=== PATIENT | female | born 1990 | race Caucasian/White ===

== ENCOUNTER 2017-06-04 10:08 | Emergency (ER) | payer BC, OTHER ==
[2017-06-04 10:16] VITALS: BP 107/73
[2017-06-04] MEDS ORDERED: methylPREDNISolone Sodium Succinate 125 MG/2 ML SDV IVPUSH ONE (10:16)
[2017-06-04] MEDS ORDERED: diphenhydrAMINE 50 MG/ML SDV IVPUSH ONE (10:17)
[2017-06-04] MEDS ORDERED: Sodium Chloride 0.9% 10 ML Syringe FLUSH PRN (10:31)
[2017-06-04] MEDS ORDERED: Famotidine 20 MG Tab PO ONE (10:55)
--- NOTE | 2017-06-04 11:23 | EDM.PDOC ---
ED HPI GENERAL MEDICAL PROBLEM - General Chief Complaint: Allergic Reaction Stated Complaint: allergic reaction Time Seen by Provider: 06/04/17 10:33 Source of Information: Reports: Patient History Limitations: Reports: No Limitations - History of Present Illness INITIAL COMMENTS - FREE TEXT/NARRATIVE: Generalized Urticaria that developed over the last 24 hours. No known exposures. No history of prior hives. No med changes recently. Denies any recent trauma or illness. Denies SOB/respiratory changes. No other complaints. Was out running in the heat two days ago. Hives started around back of neck. More concentrated around waistband area now. Took one Benadryl earlier today. 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 Denies: Ear Pain, Rhinitis, Sinus Problem, Throat Pain, Throat Swelling Respiratory: Reports: No Symptoms Cardiovascular: Reports: No Symptoms GI/Abdominal: Reports: No Symptoms : Reports: No Symptoms Musculoskeletal: Reports: No Symptoms Skin: Reports: Urticaria. Denies: Mottled, Pallor, Diaphoresis, Wound, Burn(s) , Change in Hair/Nails, Lumps Neurological: Reports: No Symptoms Psychiatric: Reports: No Symptoms Hematologic/Lymphatic: Reports: No Symptoms Immunologic: Reports: No Symptoms ED EXAM GENERAL NO PERIP PULSE - Physical Exam Exam: See Below Exam Limited By: No Limitations General Appearance: Alert, WD/WN, No Apparent Distress Eye Exam: Bilateral Eye: EOMI, PERRL Ears: Normal External Exam, Normal Canal Nose: Normal Inspection Throat/Mouth: Normal Inspection, Normal Voice, No Airway Compromise Head: Atraumatic, Normocephalic Neck: Normal Inspection, Supple, Non-Tender, Full Range of Motion Respiratory/Chest: No Respiratory Distress, Lungs Clear, Normal Breath Sounds, No Accessory Muscle Use, Chest Non-Tender Cardiovascular: Normal Peripheral Pulses, Regular Rate, Rhythm, No Murmur GI/Abdominal: Normal Bowel Sounds, Soft, Non-Tender, No Distention (Female) Exam: Deferred Rectal (Female) Exam: Deferred Back Exam: Normal Inspection Extremities: Normal Inspection, Normal Range of Motion, Non-Tender, No Pedal Edema, Normal Capillary Refill Neurological: Alert, Oriented, Normal Gait, No Motor/Sensory Deficits Psychiatric: Normal Affect, Normal Mood Skin Exam: Warm, Dry, Other (Urticarial-type lesions scattered on neck/trunk/ limbs. No scaling. No drainage/pustules/vesicles. More concentrated/confluent around waistband. ). No: Excoriations, Increased Warmth, Jaundice Course - Vital Signs Last Recorded V/S: Last Vital Signs Temp 36.4 C 06/04/17 10:12 Pulse 91 06/04/17 10:12 Resp 20 06/04/17 10:12 BP 107/73 06/04/17 10:12 Pulse Ox 100 06/04/17 10:12 - Orders/Labs/Meds Orders: Active Orders 24 hr Category Date Time Status Saline Lock Insert [OM.PC] Routine Oth 06/04/17 10:31 Ordered Meds: Medications Discontinued Medications Generic Name Dose Route Start Last Admin Trade Name Kenneyq PRN Reason Stop Dose Admin Diphenhydramine HCl 50 mg 06/04/17 10:17 06/04/17 10:33 Benadryl IVPUSH 06/04/17 10:18 50 mg ONETIME ONE Administration Famotidine 20 mg 06/04/17 10:55 06/04/17 11:06 Pepcid PO 06/04/17 10:56 20 mg ONETIME ONE Administration Methylprednisolone Sodium Succinate 125 mg 06/04/17 10:16 06/04/17 10:29 Solu-Medrol IVPUSH 06/04/17 10:17 125 mg ONETIME ONE Administration Sodium Chloride 10 ml 06/04/17 10:31 06/04/17 10:32 Saline Flush FLUSH 10 ml ASDIRECTED PRN Administration Keep Vein Open - Re-Assessments/Exams Free Text/Narrative Re-Assessment/Exam: 06/04/17 11:24 Improvement noted within 30 minutes of receiving Solumedrol and Benadryl IV. Continued to be observed in ER. Uncertain as to cause of rash. May be due to environmental exposure. Given the concentration around waistband and history of running in the heat/developing heavy sweating two days ago---may be heat-induced urticarial reaction. No changes in medications at this time planned, however if symptoms persist patient may need to consider discontinuation of meds while trigger for the hives is attempted to be found. Will continue patient on several days of Prednisone as well as Benadryl. Departure - Departure Time of Disposition: 11:45 Disposition: Home, Self-Care 01 Clinical Impression: Urticaria - Discharge Information Prescriptions: predniSONE [Prednisone] 20 mg PO DAILY #3 tablet Instructions: Famotidine tablets or gelcaps, Diphenhydramine injection, Methylprednisolone Solution for Injection, Hives, [id number] Referrals: PCP,Unknown [Ordering Only Provider] - Additional Instructions: Home, rest, stay in air-conditioned environment for the next several days. If heat/exercise triggered the hives, it is best to avoid triggering worsening symptoms and avoid re-exposure. As discussed, other things can cause hives, including medications, food, plants, bugs, and chemicals. If the hives return or will not go away then further evaluation needs to be done. For now, continue your current medications as you have been on them for awhile. However they may need to be discontinued if the hives continue to be problematic. Do not suddenly stop them on your own however as you can get withdrawal problems from doing that. Follow up at clinic as needed. Follow up in ER if you have sudden worsening problems, especially if you develop swelling of throat/lips or shortness of breath. - My Orders Last 24 Hours: My Active Orders 06/04/17 10:31 Saline Lock Insert [OM.PC] Routine - Assessment/Plan Last 24 Hours: My Active Orders 06/04/17 10:31 Saline Lock Insert [OM.PC] Routine
== END 2017-06-04 11:58 | disposition home or self-care (01) ==
LOC: LL.ED 10:08
DX: L50.9 Urticaria, unspecified (principal); Z88.1 Allergy status to other antibiotic agents; Z88.2 Allergy status to sulfonamides; Z79.899 Other long term (current) drug therapy; Z90.710 Acquired absence of both cervix and uterus
CPT/HCPCS: 96374; 96375; 99283; 99284; A9270; J1200; J2930; J7050

== ENCOUNTER 2017-06-05 20:54 | Emergency (ER) | payer OTHER ==
[2017-06-05] MEDS ORDERED: methylPREDNISolone Sodium Succinate 125 MG/2 ML SDV IM ONE (21:02)
[2017-06-05] MEDS ORDERED: diphenhydrAMINE 50 MG/ML SDV IM ONE (21:03)
--- NOTE | 2017-06-05 21:41 | EDM.PDOC ---
ED HPI GENERAL MEDICAL PROBLEM - General Chief Complaint: Allergic Reaction Stated Complaint: hives Time Seen by Provider: 06/05/17 21:10 Source of Information: Reports: Patient History Limitations: Reports: No Limitations - History of Present Illness INITIAL COMMENTS - FREE TEXT/NARRATIVE: Patient returns to ER with continued problems with urticaria of unknown origin. She has been taking Benadryl every 6 hours as recommended. She has not yet picked up her prednisone prescription however. She was seen yesterday morning and received Benadryl, Solu-Medrol, and Pepcid with good result. Possible heat induced urticaria as she has been out running in high heat index and was overly hot/sweaty. She also started Wellbutrin and Naltrexone a [facility] ago [facility] but no other more recent additions to medications/supplements. No other triggers, chemical or otherwise, identified during history. Denies shortness of breath/respiratory changes. Hives started to become worse this evening. No complaint of pain. No other complaints during ROS. 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 Denies: Shortness of Breath, Wheezing, Cough Cardiovascular: Reports: No Symptoms GI/Abdominal: Reports: No Symptoms : Reports: No Symptoms Musculoskeletal: Reports: No Symptoms Skin: Reports: Urticaria Neurological: Reports: No Symptoms Psychiatric: Reports: No Symptoms Hematologic/Lymphatic: Reports: No Symptoms ED EXAM GENERAL NO PERIP PULSE - Physical Exam Exam: See Below Exam Limited By: No Limitations General Appearance: Alert, WD/WN, No Apparent Distress Eye Exam: Bilateral Eye: EOMI, PERRL Ears: Normal External Exam Nose: Normal Inspection Throat/Mouth: Normal Inspection, Normal Lips, Normal Voice, No Airway Compromise Head: Atraumatic, Normocephalic Neck: Normal Inspection, Supple, Non-Tender, Full Range of Motion Respiratory/Chest: No Respiratory Distress, Lungs Clear, Normal Breath Sounds, No Accessory Muscle Use, Chest Non-Tender Cardiovascular: No Edema, No Murmur, Tachycardia GI/Abdominal: Soft Back Exam: No: CVA Tenderness (L), CVA Tenderness (R) Extremities: Normal Range of Motion, Non-Tender, No Pedal Edema, Normal Capillary Refill Neurological: Alert, Oriented, Normal Cognition, Normal Gait, No Motor/Sensory Deficits Psychiatric: Normal Affect, Normal Mood Skin Exam: Warm, Dry, Intact, Rash (generalized urticaria) Course - Orders/Labs/Meds Meds: Medications Discontinued Medications Generic Name Dose Route Start Last Admin Trade Name Marisol PRN Reason Stop Dose Admin Diphenhydramine HCl 50 mg 06/05/17 21:03 06/05/17 21:19 Benadryl IM 06/05/17 21:04 50 mg ONETIME ONE Administration Methylprednisolone Sodium Succinate 125 mg 06/05/17 21:02 06/05/17 21:18 Solu-Medrol IM 06/05/17 21:03 125 mg ONETIME ONE Administration - Re-Assessments/Exams Free Text/Narrative Re-Assessment/Exam: 06/05/17 21:49 Patient received IM Solumedrol as well as Benadryl. Observed until she started to feel improvement of her symptoms. 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 She will continue to take Benadryl. Recommend that she discontinue her Wellbutrin and Naltrexone for now. Will also test her for Lyme as that can cause unexplained urticaria. Patient is to follow up next week with primary provider. 06/05/17 22:05 Urticaria continue to improve. Pulse improved also. Patient would like to go home at this time. Extensive precautions reviewed prior to discharge. Departure - Departure Time of Disposition: 22:06 Disposition: Home, Self-Care 01 Condition: Good Clinical Impression: Urticaria - Discharge Information Additional Instructions: Hold your current medications and any supplements for now. Take the Prednisone as directed. Continue to take Benadryl regularly as well as Pepcid as discussed yesterday. Follow up with your primary provider within a week to be rechecked and discuss the discontinued medications. Follow up in ER if you have sudden worsening, especially if you develop shortness of breath.
[2017-06-05] MEDS ORDERED: Ondansetron 4 MG Tab.DIS PO ONE (21:56)
[2017-06-05 22:04] VITALS: BP 97/74
== END 2017-06-05 22:15 | disposition home or self-care (01) ==
LOC: LL.ED 20:54
DX: L50.9 Urticaria, unspecified (principal); F32.9 Major depressive disorder, single episode, unspecified; F41.9 Anxiety disorder, unspecified; Z88.1 Allergy status to other antibiotic agents; Z88.2 Allergy status to sulfonamides; Z79.899 Other long term (current) drug therapy; Z90.710 Acquired absence of both cervix and uterus
CPT/HCPCS: 86618; 96372; 99284; A9270; J1200; J2930; 36415; 99283

== ENCOUNTER 2018-03-16 12:45 | Emergency (ER) | payer OTHER ==
[2018-03-16 13:02] VITALS: BP 104/73
--- NOTE | 2018-03-16 13:36 | EDM.PDOC ---
ED HPI GENERAL MEDICAL PROBLEM - General Chief Complaint: Abdominal Pain Stated Complaint: Abdominal pain s/p endometrial surgery Time Seen by Provider: 03/16/18 12:49 Source of Information: Reports: Patient History Limitations: Reports: No Limitations - History of Present Illness INITIAL COMMENTS - FREE TEXT/NARRATIVE: Patient is a 27-year-old who is seen today with chief complaint of abdominal pain patient states that about TWo and half weeks ago she had laparoscopic surgery for endometritis she had abdominal hysterectomy in the past but now had right upper quadrant abdominal pain exploratory laparoscopic surgery was performed . This was performed in [facility]. Onset: Gradual Duration: Day(s):, Getting Worse Location: Reports: Abdomen Quality: Reports: Ache, Pressure, Throbbing Severity: Moderate Improves with: Reports: None Right Abdomen Pain Score (Numeric/FACES): 7 - Related Data Allergies Allergy/AdvReac Type Severity Reaction Status Date / Time amoxicillin Allergy Hives Verified 06/04/17 10:40 bupropion [From Wellbutrin] Allergy Hives Verified 03/16/18 12:47 Sulfa (Sulfonamide Allergy Hives Verified 06/04/17 10:40 Antibiotics) Home Meds: Home Meds Sertraline HCl [Zoloft] 150 mg PO DAILY 03/16/18 [History] Topiramate [Topamax] 50 mg PO BEDTIME 03/16/18 [History] oxyCODONE HCl/Acetaminophen [Endocet 5-325 Tablet] 1 - 2 tab PO ASDIRECTED 03/16 [History] Past Medical History Genitourinary History: Reports: Other (See Below) Other Genitourinary History: intercystial cysitis 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 Musculoskeletal History: Reports: Other (See Below) Psychiatric History: Reports: Anxiety, Depression, PTSD - Past Surgical History Female Surgical History: Reports: Hysterectomy Social & Family History - Tobacco Use Smoking Status *Q: Unknown Ever Smoked - Recreational Drug Use Recreational Drug Use: No ED ROS GENERAL - Review of Systems Review Of Systems: See Below Constitutional: Reports: No Symptoms HEENT: Reports: No Symptoms Respiratory: Reports: No Symptoms Cardiovascular: Reports: No Symptoms Endocrine: Reports: No Symptoms GI/Abdominal: Reports: Abdominal Pain (Right upper quadrant) : Reports: No Symptoms Musculoskeletal: Reports: No Symptoms Skin: Reports: No Symptoms Neurological: Reports: No Symptoms Psychiatric: Reports: No Symptoms Hematologic/Lymphatic: Reports: No Symptoms ED EXAM, GI/ABD - Physical Exam Exam: See Below Exam Limited By: No Limitations General Appearance: Alert, WD/WN, No Apparent Distress Eyes: Bilateral: Normal Appearance, EOMI Ears: Normal External Exam, Normal Canal, Hearing Grossly Normal, Normal TMs Nose: Normal Inspection, Normal Mucosa, No Blood Throat/Mouth: Normal Inspection, Normal Lips, Normal Teeth, Normal Gums, Normal Oropharynx, Normal Voice, No Airway Compromise Head: Atraumatic, Normocephalic Neck: Normal Inspection, Supple, Non-Tender, Full Range of Motion Respiratory/Chest: No Respiratory Distress, Lungs Clear, Normal Breath Sounds, No Accessory Muscle Use, Chest Non-Tender Cardiovascular: Normal Peripheral Pulses, Regular Rate, Rhythm, No Edema, No Gallop, No JVD, No Murmur, No Rub GI/Abdominal Exam: No Abnormal Bruit, No Mass, Tender (Right upper quadrant), Abnormal Bowel Sounds (Female) Exam: Deferred Rectal (Female) Exam: Deferred Back Exam: Normal Inspection, Full Range of Motion, NT Extremities: Normal Inspection, Normal Range of Motion, Non-Tender, Normal Capillary Refill, No Pedal Edema Neurological: Alert, Oriented, CN II-XII Intact, Normal Cognition, Normal Gait, Normal Reflexes, No Motor/Sensory Deficits Psychiatric: Normal Affect, Normal Mood Skin Exam: Warm, Dry, Intact, Normal Color, No Rash Lymphatic: No Adenopathy Comments: CT of the abdomen obtained with oral and IV contrast revealed ovarian cysts 4 mm no other abnormality was seen on CAT scan Course - Vital Signs Last Recorded V/S: Last Vital Signs Temp 99.3 F 03/16/18 13:00 Pulse 83 03/16/18 13:00 Resp 14 03/16/18 13:00 BP 104/73 03/16/18 13:00 Pulse Ox 100 03/16/18 13:00 - Orders/Labs/Meds Orders: Active Orders 24 hr Category Date Time Status Abdomen Pelvis w Cont [CT] Stat Exams 03/16/18 13:28 Taken CULTURE BLOOD [BC] Stat Lab 03/16/18 13:11 Received CULTURE BLOOD [BC] Stat Lab 03/16/18 13:11 Received Blood Culture x2 Reflex Set [OM.PC] Stat Oth 03/16/18 12:55 Ordered Labs: Laboratory Tests 03/16/18 Range/Units 13:11 WBC 7.7 (4.0-10.2) K/uL RBC 4.11 (3.77-5.09) M/uL Hgb 13.0 (11.7-15.5) g/dL Hct 37.3 (34.0-46.0) % MCV 90.8 (84.0-98.0) fL MCH 31.6 (28.2-33.3) pg MCHC 34.9 (31.7-36.0) g/dL RDW 12.7 (11.2-14.1) % Plt Count 379 H (150-350) K/uL Neut % (Auto) 59.6 (45.0-80.0) % Lymph % (Auto) 28.9 (10.0-50.0) % [place] % (Auto) 8.9 (2.0-14.0) % Eos % (Auto) 2.1 (0.0-5.0) % Baso % (Auto) 0.5 (0.0-2.0) % Neut # (Auto) 4.57 (1.40-7.00) K/uL Lymph # (Auto) 2.21 (0.50-3.50) K/uL [place] # (Auto) 0.68 (0.00-1.00) K/uL Eos # (Auto) 0.16 (0.00-0.50) K/uL Baso # (Auto) 0.04 (0.00-0.20) K/uL Meds: Medications Discontinued Medications Generic Name Dose Route Start Last Admin Trade Name Kenneyq PRN Reason Stop Dose Admin Iopamidol 100 ml 03/16/18 14:30 03/16/18 14:46 Isovue-300 (61%) IVPUSH 03/16/18 14:31 100 ml ONETIME ONE Administration Departure - Departure Time of Disposition: 15:24 Disposition: Home, Self-Care 01 Condition: Fair Clinical Impression: Ovarian cyst Abdominal pain Qualifiers: Abdominal location: right upper quadrant Qualified Code(s): R10.11 - Right upper quadrant pain - Discharge Information Instructions: Ovarian Cyst, [id number] Referrals: Carmen Chisholm PA-C [Primary Care Provider] - Forms: ED Department Discharge Care Plan Goals: Patient will go home on her pain pills 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
[2018-03-16] MEDS ORDERED: Iopamidol 612 MG/ML 100 ML Bottle IVPUSH ONE (14:30)
== END 2018-03-16 15:50 | disposition home or self-care (01) ==
LOC: LL.ED 12:45
DX: N83.201 Unspecified ovarian cyst, right side (principal); F32.9 Major depressive disorder, single episode, unspecified; Z88.1 Allergy status to other antibiotic agents; Z88.2 Allergy status to sulfonamides; Z88.8 Allergy status to other drugs, medicaments and biological substances; Z79.899 Other long term (current) drug therapy
CPT/HCPCS: 36000; 36415; 74177; 85025; 87040; 99284; Q9967